=== PATIENT | female | born 1950 | race Caucasian/White ===

== ENCOUNTER 2018-01-31 09:01 | Observation (INO) | payer OTHER, MEDICARE ==
[~2018-01-31] VITALS: Ht 157.5 cm; Wt 119.0 kg
[2018-01-31 09:43] LABS: HEMATOCRIT 41.1 % (36.0-46.0); HEMOGLOBIN 14.4 G/DL (11.9-15.5); MCH 31.4 PG (29.0-34.0); MCV 89.7 FL (83-99); PLATELET COUNT 196 K/uL (156-360); RBC DIS.WIDTH-CV 12.5 % (11.8-14.6); RBC DIS.WIDTH-SD 40.9 % (39-53); RED BLOOD COUNT 4.58 M/uL (3.80-5.20); WHITE BLOOD COUNT 7.8 K/uL (4.1-10.2)
[2018-01-31 10:20] LABS: CHLORIDE 100 MEQ/L (99-109); CREATININE 0.7 MG/DL (0.6-1.3); GFR ESTIMATE (CALCULATED) > 59 mL/min/; GLUCOSE 286 mg/dL (70-99); POTASSIUM 3.8 MEQ/L (3.7-5.4); SODIUM 136 MEQ/L (136-147); UREA NITROGEN (BUN) 14 mg/dL (9-23)
[2018-01-31 13:08] LABS: APPEARANCE CLEAR ((CLEAR)); BILIRUBIN NEGATIVE; BLOOD NEGATIVE; COLOR YELLOW ((YELLOW)); GLUCOSE (STRIP) >=500; KETONES 5; LEUKOCYTES TRACE; NITRITE NEGATIVE; PROTEIN (STRIP) NEGATIVE; SPECIFIC GRAVITY 1.023 (1.000-1.030); UROBILINOGEN 0.2 MG/DL (0.2-1.0)
[2018-01-31 13:12] LABS: BACTERIA RARE /HPF; EPITHELIAL CELLS RARE /HPF; MUCUS TRACE /LPF; RED BLOOD CELLS 0-5 /HPF (0-5); UCUL ADDED? YES
[2018-01-31 14:14] LABS: TROP-I INTERPRETATION NEGATIVE; TROPONIN-I 0.11 ng/mL (0.0-0.30)
[2018-01-31 17:28] VITALS: BP 149/73
[2018-01-31 17:41] LABS: HDL CHOLESTEROL 40 MG/DL (Desirable>=50); LDL CHOLESTEROL 66 mg/dL (Desirable<100); NON-HDL CHOLESTEROL 105 mg/dL (Desirable<160); TOTAL CHOLESTEROL 145 mg/dL (Desirable<200); TRIGLYCERIDES 195 MG/DL (Normal: <150)
[2018-01-31 23:41] VITALS: BP 133/61
[2018-02-01 03:51] VITALS: BP 138/65
[2018-02-01 06:05] LABS: ALBUMIN 3.7 G/DL (3.2-4.8); ALKALINE PHOSPHATASE 59 IU/L (3-129); ALT (GPT) 40 IU/L (3-49); AST (GOT) 36 IU/L (2-34); CHLORIDE 103 MEQ/L (99-109); CREATININE 0.7 MG/DL (0.6-1.3); GFR ESTIMATE (CALCULATED) > 59 mL/min/; GLUCOSE 146 mg/dL (70-99); POTASSIUM 3.6 MEQ/L (3.7-5.4); SODIUM 140 MEQ/L (136-147); TOTAL BILIRUBIN 0.7 MG/DL (0.0-1.0); TOTAL PROTEIN 5.9 G/DL (6.4-8.3); UREA NITROGEN (BUN) 15 mg/dL (9-23)
[2018-02-01 08:33] VITALS: BP 154/76
[2018-02-01 11:57] VITALS: BP 127/67
[2018-02-01 12:24] LABS: HEMOGLOBIN A1c (GLYCOHEMOGLOB) 8.4 % (Below 5.7)
[2018-02-01] MEDS ORDERED: ESCITALOPRAM OX20 MG PO (12:49)
[2018-02-01] MEDS ORDERED: ZESTORETIC 20-1 EAC1 PO (12:49)
[2018-02-01] MEDS ORDERED: LEVEMIR FL100 UNIT/1 SC (12:49)
[2018-02-01] MEDS ORDERED: METFORMIN HCL500 MG PO (12:50)
[2018-02-01] MEDS ORDERED: GLIMEPIRIDE4 MG PO (12:50)
[2018-02-01] MEDS ORDERED: PRAVASTATIN SOD40 MG PO (12:50)
[2018-02-01] MEDS ORDERED: CALCIUM600 M1 PO (12:51)
[2018-02-01] MEDS ORDERED: TRULICITY1.5 MG/0.5 SC (12:51)
[2018-02-01] MEDS ORDERED: CINNAMON500 MG PO (12:51)
[2018-02-01] MEDS ORDERED: FIBER THERAPY0.52 GM PO (12:52)
[2018-02-01] MEDS ORDERED: VITAMIN D2000 UNIT PO (12:52)
[2018-02-01] MEDS ORDERED: ANTIVERT25 MG PO (13:33)
[2018-02-01] MEDS ORDERED: CYANOCOBAL1000 MCG/2 IM (13:35)
== END 2018-02-01 15:48 | disposition home or self-care (01) ==
LOC: EME 09:01 → EDOF 15:35 → ENRESERV 15:44 → 5SOUTH 17:10
PROVIDERS: Hospitalist
DX: R42 Dizziness and giddiness (principal); R11.2 Nausea with vomiting, unspecified; I10 Essential (primary) hypertension; E11.40 Type 2 diabetes mellitus with diabetic neuropathy, unspecified; E78.5 Hyperlipidemia, unspecified; E53.8 Deficiency of other specified B group vitamins; M19.90 Unspecified osteoarthritis, unspecified site; E86.0 Dehydration; H81.09 Meniere's disease, unspecified ear; G45.9 Transient cerebral ischemic attack, unspecified; Z90.49 Acquired absence of other specified parts of digestive tract; Z90.710 Acquired absence of both cervix and uterus; Z79.4 Long term (current) use of insulin; Z79.82 Long term (current) use of aspirin; Z88.2 Allergy status to sulfonamides; Z66 Do not resuscitate; Z83.3 Family history of diabetes mellitus; Z82.49 Family history of ischemic heart disease and other diseases of the circulatory system
CPT/HCPCS: 70450; 70551; 80048; 80053; 80061; 81003; 82607; 82948; 83036; 84484; 85027; 87086; 93005; 93880; 99281; 99284; G0378; G8978 GP CI; G8979 GP CH; G8980 GP CI; G8987 GO CI; G8988 GO CH; G8989 GO CI; J1644; J3420; J7030

== ENCOUNTER 2018-05-26 17:10 | Observation (INO) | payer OTHER, MEDICARE ==
[~2018-05-26] VITALS: Ht 157.5 cm; Wt 121.4 kg
[~2018-05-26 17:10] MED LIST: ANTIVERT25 MG PO; CALCIUM600 M1 PO; CINNAMON500 MG PO; CYANOCOBAL1000 MCG/2 IM; ESCITALOPRAM OX20 MG PO; FIBER THERAPY0.52 GM PO; GLIMEPIRIDE4 MG PO; LEVEMIR FL100 UNIT/1 SC; METFORMIN HCL500 MG PO; PRAVASTATIN SOD40 MG PO; TRULICITY1.5 MG/0.5 SC; VITAMIN D2000 UNIT PO; ZESTORETIC 20-1 EAC1 PO
[2018-05-26 18:54] LABS: HEMATOCRIT 33.4 % (36.0-46.0); HEMOGLOBIN 11.4 G/DL (11.9-15.5); MCH 31.1 PG (29.0-34.0); MCHC 34.1 G/DL (30.0-36.0); PLATELET COUNT 264 K/uL (156-360); RBC DIS.WIDTH-CV 12.8 % (11.8-14.6); RBC DIS.WIDTH-SD 42.1 % (39-53); RED BLOOD COUNT 3.67 M/uL (3.80-5.20)
[2018-05-26 19:06] LABS: CHLORIDE 100 mEq/L (99-109); POTASSIUM 4.1 mEq/L (3.7-5.4)
[2018-05-26 19:07] LABS: SODIUM 138 mEq/L (136-147)
[2018-05-26 19:08] LABS: GLUCOSE 168 mg/dL (70-99); INTER. NORMALIZED RATIO 1.2
[2018-05-26 19:11] LABS: PTT 30.5 SEC (25-37)
[2018-05-26 19:12] LABS: CREATININE 0.7 mg/dL (0.6-1.3); GFR ESTIMATE (CALCULATED) > 59 mL/min/
[2018-05-26 19:13] LABS: UREA NITROGEN (BUN) 18 mg/dL (9-23)
[2018-05-26 19:18] LABS: TROP-I INTERPRETATION NEGATIVE; TROPONIN-I < 0.01 ng/mL (0.0-0.30)
[2018-05-26] MEDS ORDERED: CYANOCOBAL1000 MCG/2 IM (21:27)
[2018-05-26] MEDS ORDERED: XARELTO10 MG PO (21:28)
[2018-05-26] MEDS ORDERED: LISINOPRIL-HCT1 EAC3 PO (21:29)
[2018-05-26 22:55] VITALS: BP 165/82
[2018-05-27 04:06] VITALS: BP 144/72
[2018-05-27 07:41] VITALS: BP 179/78
[2018-05-27 11:00] VITALS: BP 138/64
[2018-05-27 11:05] VITALS: BP 130/63
[2018-05-27 11:08] VITALS: BP 143/75
[2018-05-27 15:27] VITALS: BP 116/75
[2018-05-27 16:23] LABS: APPEARANCE CLEAR ((CLEAR)); BILIRUBIN NEGATIVE; BLOOD NEGATIVE; COLOR STRAW ((YELLOW)); GLUCOSE (STRIP) 150; KETONES NEGATIVE; LEUKOCYTES NEGATIVE; NITRITE NEGATIVE; PROTEIN (STRIP) NEGATIVE; UCUL ADDED? NO; UROBILINOGEN 0.2 MG/DL (0.2-1.0)
== END 2018-05-27 17:24 | disposition home or self-care (01) ==
LOC: EME 17:10 → EDOF 21:42 → 4SOUTH 21:42 → EDOF 21:42 → ENRESERV 21:43 → 4SOUTH 22:30
PROVIDERS: Hospitalist; Nurse Practitioner Family
DX: S00.03XA Contusion of scalp, initial encounter (principal); W19.XXXA Unspecified fall, initial encounter; I10 Essential (primary) hypertension; E78.5 Hyperlipidemia, unspecified; Z96.652 Presence of left artificial knee joint; E66.01 Morbid (severe) obesity due to excess calories; Z68.42 Body mass index [BMI] 45.0-49.9, adult; Z79.01 Long term (current) use of anticoagulants; E11.9 Type 2 diabetes mellitus without complications; Z79.4 Long term (current) use of insulin; M19.90 Unspecified osteoarthritis, unspecified site; F32.9 Major depressive disorder, single episode, unspecified; Z88.2 Allergy status to sulfonamides; Z88.8 Allergy status to other drugs, medicaments and biological substances; Z82.49 Family history of ischemic heart disease and other diseases of the circulatory system; Z83.3 Family history of diabetes mellitus; Z90.710 Acquired absence of both cervix and uterus; Z90.49 Acquired absence of other specified parts of digestive tract
CPT/HCPCS: 70450; 71045; 71275; 72125; 80048; 81003; 82948; 84484; 85027; 85610; 85730; 86850; 86900; 86901; 87086; 93005; 99281; 99285; G0378; G8987 GO CI; G8988 GO CH; J1815; J1885; J7030